=== PATIENT | female | born 1950 | race Caucasian/White ===

== ENCOUNTER → 2024-12-21 10:22 | Outpatient (CLI) | payer MEDICARE, SELFPAY | PROVIDERS: Visit Provider Chiropractor | DX: R82.90 Unspecified abnormal findings in urine (principal) | CPT/HCPCS: 87077; 87086; 87186 ==

== ENCOUNTER → 2024-12-30 14:26 | Outpatient (CLI) | payer MEDICARE, SELFPAY | PROVIDERS: Visit Provider Chiropractor | DX: R39.15 Urgency of urination (principal) | CPT/HCPCS: 87086 ==

== ENCOUNTER 2024-12-30 15:03 | Emergency (ER) | payer MEDICARE, SELFPAY ==
[2024-12-30 15:22] VITALS: BP 161/74; PULSE 74; RESP 16; TEMP 37.1; O2SAT 99; BMI 29.7
--- NOTE | 2024-12-30 16:35 | DI.CT.S_ITS ---
PROCEDURE: CT ABDOMEN PELVIS WO CON INDICATIONS: back/abd pain TECHNIQUE: CT of the abdomen and pelvis was obtained without intravenous contrast. Coronal and sagittal reformats were performed. For radiation dose reduction, the following was used: automated exposure control, adjustment of mA and/or kV according to patient size. COMPARISON: None. FINDINGS: Image quality: Diagnostic. Lower Chest: No significant findings. ABDOMEN: Liver: No contour-deforming mass. Gallbladder: Collapsed at the time of this study. Biliary ducts: No biliary dilation. Pancreas: No ductal dilation. Spleen: Size is within normal limits. Adrenal Glands: No adrenal nodules. Kidneys and Ureters: No hydronephrosis. No contour-deforming mass. Nonobstructing right-sided kidney stones are seen, measuring up to 5 mm and 300 Hounsfield units. Stomach and Bowel: Normal colonic caliber, without significant wall thickening. Scattered diverticulosis is seen, particularly distally. No active diverticulitis is seen. No dilated loops of small bowel are seen. A normal appendix is noted. Peritoneum: No abnormal intraperitoneal fluid. No free air. Ventral Wall: No significant hernia. Abdominal Nodes: No retroperitoneal or mesenteric adenopathy by size criteria. Vessels: Aorta and inferior vena cava are normal in size. PELVIS: Pelvic Organs: No adnexal masses are seen on either side. Bladder: Unremarkable. Pelvic Nodes: No enlarged lymph nodes. Miscellaneous: No inguinal hernias are seen. Bones: No aggressive osseous abnormality. There is at least moderate disc space narrowing seen at the L4-L5 level. Post erected disc osteophyte complex is seen at this level. At least moderate bilateral neural foraminal narrowing is seen. There is at least moderate disc space narrowing seen at L5-S1. At least moderate bilateral neural foraminal narrowing is also seen at this level. Milder degenerative changes are seen elsewhere. IMPRESSION: No hernando acute abnormality is seen. Focal lower lumbar spine degenerative changes are seen. Additional findings: Nonobstructing right-sided kidney stones Diverticulosis, without active diverticulitis Dictated by: Alexander Sparrow M.D. on 12/30/2024 at 16:06 Approved by: Alexander Sparrow M.D. on 12/30/2024 at 16:09
[2024-12-30 16:51] VITALS: BP 166/83; PULSE 60; O2SAT 100
[2024-12-30 17:00] VITALS: BP 149/65; PULSE 62; O2SAT 98
[2024-12-30] MEDS: LACTATED RINGERS 1,000 ML 1000 ML IV (17:05)
[2024-12-30] MEDS: ONDANSETRON 4 MG/2 ML INJ IV (17:05)
[2024-12-30] MEDS: KETOROLAC 30 MG/ML VIAL 15 MG IV (17:06)
[2024-12-30 17:11] LABS: Add Manual Diff / Slide Review NO; Hematocrit 43.5 % (36-46); Hemoglobin 14.8 g/dL (12.0-16.0); Lymphocytes Absolute Auto 1700 /uL (1100-4500); Mean Corpuscular HGB Conc 34.1 % (30-36); Mean Corpuscular Hemoglobin 29.1 PG (26-34); Mean Corpuscular Volume 85.6 fL (80-100); Platelet Count 265 X10^3/uL (150-400)
[2024-12-30 17:27] LABS: Alanine Aminotransferase 29 IU/L (<35); Albumin 4.5 g/dL (3.5-5.0); Albumin Globulin Ratio 1.6 (1.0-2.8); Alkaline Phosphatase 75 U/L (38-126); Blood Urea Nitrogen 21 mg/dL (7-17); Calcium 9.6 mg/dL (8.4-10.2); Carbon Dioxide 28 mmol/L (22-32); Chloride 103 mmol/L (98-107); Estimated Glomerular Filt Rate > 60 mL/min (>60); Globulin 2.8 g/dL (1.7-4.1); Glucose 114 mg/dL (70-99); HEMOLYSIS < 15 (0-50); Lipase 45 U/L (23-300); Potassium 4.1 mmol/L (3.4-5.1); Sodium 138 mmol/L (137-145); Total Protein 7.3 g/dL (6.3-8.2)
[2024-12-30 17:30] VITALS: BP 158/70; PULSE 55; RESP 22; O2SAT 97
--- NOTE | 2024-12-30 17:55 | ED_ITS ---
HPI - Female Genitourinary General Chief complaint: Urogenital-Female Stated complaint: suspect KD Stone Time Seen by Provider: 12/30/24 16:35 History of Present Illness HPI Narrative: 74 year old female recently treated for UTI with macrobid presents with blood in urine and lower abdominal pain along with multiple bouts on nonbloody diarrhea that started today and nausea. She is passing gas and moving her bowels denies any back pain fever chills body aches chest pain shortness breath cough sore throat. She was at the walk-in clinic and was referred to the ER for further evaluation. She is visiting from [place] at the moment. Other than what is stated 14 point review of system is negative. Related Data Home Medications ?Medication ?Instructions ?Recorded ?Confirmed acyclovir 800 mg tablet 800 mg PO DAILY PRN 12/21/24 12/30/24 conjugated estrogens 0.625 mg/gram 0.625 mg vaginal DA RICCARDO 12/21/24 12/21/24 vaginal cream Previous Rx's ?Medication ?Instructions ?Recorded ondansetron 4 mg disintegrating 4 mg PO Q8H PRN nausea and 12/30/24 tablet vomiting #30 tabs Allergies Allergy/AdvReac Type Severity Reaction Status Date / Time Sulfa (Sulfonamide AdvReac Nausea Verified 12/30/24 15:27 Antibiotics) Review of Systems Review of Systems ROS Unobtainable: All systems reviewed & are unremarkable except as noted in HPI and below Exam Narrative Exam Narrative: GENERAL: [74] year old patient appears stated age. Well-developed patient, in mild distress. HEAD: Atraumatic. Normocephalic. EYES: Pupils equal round and reactive. Extraocular motions intact. No scleral icterus. No injection or drainage. ENT: Nose without bleeding, purulent drainage. Throat without erythema, tonsillar hypertrophy or exudate. Airway patent. NECK: Trachea midline. Non tender CARDIOVASCULAR: Regular rate and rhythm without murmurs, gallops, or rubs. RESPIRATORY: Clear to auscultation. Breath sounds equal bilaterally. No wheezes, rales, or rhonchi. GASTROINTESTINAL: Abdomen soft, non-tender, nondistended. EXTREMITIES: No edema or joint tenderness. BACK: Nontender without deformity or crepitance. No flank tenderness. NEURO: AOx3. SKIN: No rash or erythema of visible areas Initial Vital Signs Initial Vital Signs: Vital Signs Temperature 98.8 F 12/30/24 15:22 Pulse Rate 74 12/30/24 15:22 Respiratory Rate 16 12/30/24 15:22 Blood Pressure 161/74 H 12/30/24 15:22 Pulse Oximetry 99 12/30/24 15:22 Oxygen Delivery Method Room Air 12/30/24 15:22 Course Orders Ordered: ED Orders 12/30/24 16:35 CT abdomen pelvis wo con Stat 12/30/24 16:50 Complete Blood Count AUTO DIFF Stat Comprehensive Metabolic Panel Stat Lipase Stat 12/30/24 17:02 Ictotest Urine Stat Urine Microscopic Stat Ondansetron HCl (Ondansetron 4 Mg/2 Ml Inj) 4 mg IV NOW PRN PRN Reason: Nausea And Vomiting Last Admin: 12/30/24 17:05 Dose: 4 mg Documented By: MATTHEW Ondansetron HCl (Ondansetron 4 Mg Odt) 4 mg PO NOW PRN PRN Reason: Nausea And Vomiting Discontinued Medications Lactated Ringer's (Lactated Ringers) 1,000 mls @ 1,000 mls/hr IV BOLUS ONE Stop: 12/30/24 17:34 Last Admin: 12/30/24 17:05 Dose: 1,000 mls/hr Documented By: MATTHEW Ketorolac Tromethamine (Ketorolac 30 Mg/Ml Vial) 15 mg IV NOW ONE Stop: 12/30/24 16:36 Last Admin: 12/30/24 17:06 Dose: 15 mg Documented By: MATTHEW Vital Signs Vital signs: Vital Signs - 8 hr 12/30/24 15:22 12/30/24 16:51 12/30/24 16:51 Temperature 98.8 F Pulse Rate 74 60 Respiratory Rate 16 Blood Pressure 161/74 H 166/83 H Pulse Oximetry 99 100 Oxygen Delivery Method Room Air 12/30/24 17:00 12/30/24 17:00 Temperature Pulse Rate 62 Respiratory Rate Blood Pressure 149/65 H Pulse Oximetry 98 Oxygen Delivery Method MDM - Female Genitourinary Lab Data 12/30/24 16:50 12/30/24 16:50 Labs: Lab Results 12/30/24 Range/Units 16:50 WBC 8.9 (4.5-11.0) X10^3/uL RBC 5.08 (4.0-5.2) X10^6/uL Hgb 14.8 (12.0-16.0) g/dL Hct 43.5 (36-46) % MCV 85.6 (80-100) fL MCH 29.1 (26-34) PG MCHC 34.1 (30-36) % RDW 13.8 (11.6-14.8) % Plt Count 265 (150-400) X10^3/uL Neut % (Auto) 73.7 (50-75) % Lymph % (Auto) 18.6 L (25-40) % Potter % (Auto) 6.9 (3-14) % Eos % (Auto) 0.4 L (2-4) % Baso % (Auto) 0.4 (0-2) % Neut # (Auto) 6600 (3615-6624) /uL Lymph # (Auto) 1700 (0287-1469) /uL Potter # (Auto) 600 (0-900) /uL Eos # (Auto) 0 (0-450) /uL Baso # (Auto) 0 (0-100) /uL Sodium 138 (137-145) mmol/L Potassium 4.1 (3.4-5.1) mmol/L Chloride 103 (98-107) mmol/L Carbon Dioxide 28 (22-32) mmol/L BUN 21 H (7-17) mg/dL Creatinine 0.77 (0.52-1.04) mg/dL Estimated GFR > 60 (>60) mL/min BUN/Creatinine Ratio 27.3 H (6-22) Glucose 114 H (70-99) mg/dL Calcium 9.6 (8.4-10.2) mg/dL Total Bilirubin 0.3 (0.2-1.3) mg/dL AST 33 (14-36) IU/L ALT 29 (<35) IU/L Alkaline Phosphatase 75 (38-126) U/L Total Protein 7.3 (6.3-8.2) g/dL Albumin 4.5 (3.5-5.0) g/dL Globulin 2.8 (1.7-4.1) g/dL Albumin/Globulin Ratio 1.6 (1.0-2.8) Lipase 45 (23-300) U/L Urine Dip Bedside Urine Glucose Negative Bedside Urine Bilirubin + 1 Bedside Urine Ketone +/- 5 Urine Specific [place] 1.030 Bedside Urine Occult Blood - Negative Bedside Urine pH 5.5 Bedside Urine Protein +/- 15 Bedside Urine Urobilinogen - Negative Bedside Urine Nitrite - Negative Bedside Urine Leukocytes +/- 15 Esterase MDM Narrative Medical decision making narrative: All lab work, vital signs, nurse triage note, medication list, previous ER visits, and all imaging studies reviewed. CT scan showed no hernando acute abnormality is seen. Focal lower lumbar spine degenerative changes are seen. WBC 8.9 hemoglobin 14.8 platelet 265 sodium 138 potassium 4.1 chloride 103 bicarb 28 BUN 21 creatinine 0.77 glucose 114, LFTs normal, lipase 45.UA neg nitrite, neg blood, +1 leuk, many calcium oxal, none bacteria. Pt given fluids,and toradol here for which she feels much better on re-examination. Discharge Plan Departure Patient Disposition: Home Clinical Impression: Nausea, Diarrhea Instructions: DI for Diarrhea and Traveler's Diarrhea -- Adult Activity Restrictions/Additional Instructions: Return with new or worsening symptoms. Keep hydrated. Clear liquid diet advance as tolerated. Follow pcp 1 week if no improvement in symptoms. Prescriptions: New ondansetron 4 mg tablet,disintegrating 4 mg PO Q8H PRN (Reason: nausea and vomiting) Qty: 30 0RF No Action acyclovir 800 mg tablet 800 mg PO DAILY PRN conjugated estrogens 0.625 mg/gram cream 0.625 mg vaginal DAILY Rx Instructions: off 5 days; repeat cycle Referrals: Miscellaneous,Doctor, MD [Primary Care Provider, Medical] Stand Alone Forms: Patient Portal/API
[2024-12-30 17:56] LABS: Ictotest Urine Negative (Negative)
[2024-12-30 18:00] VITALS: BP 152/69; PULSE 58; RESP 20; O2SAT 98
[2024-12-30 18:02] LABS: Culture Indicated Urine Cult Not Indicated
== END 2024-12-30 18:24 | disposition home or self-care (01) ==
PROVIDERS: Emergency Provider Family Medicine
DX: R11.0 Nausea (principal); R19.7 Diarrhea, unspecified; R10.30 Lower abdominal pain, unspecified; R39.15 Urgency of urination
CPT/HCPCS: 36415; 74176; 80053; 81003; 81015; 83690; 85025; 87086; 96361; 96374; 96375; 99284; J1885; J2405; J7120

== ENCOUNTER 2025-01-16 14:17 | Emergency (ER) | payer MEDICARE, SELFPAY ==
[2025-01-16] VITALS (16 sets, daily range): BP systolic 146–189; BP diastolic 65–90; PULSE 62–79; RESP 16–21; TEMP 36.4; O2SAT 96–99; BMI 29.7
--- NOTE | 2025-01-16 14:54 | EKG_ITS ---
[facility] [id number] [place] [address] Test Date: 2025-01-16 Pat Name: Trina Aguilar Department: [facility] Room: Gender: Female [employer] Manager: MARCO : 1950 Requested By: Order Number: [id number] Reading MD: Rich Whitman MD Measurements Intervals [place] Rate: 68 P: 41 IN: 154 QRS: -21 QRSD: 90 T: -4 QT: 402 QTc: 427 Interpretive Statements Normal sinus rhythm Minimal voltage criteria for LVH, may be normal variant ( R in aVL ) Electronically Signed On 01-23-2025 9:02:21 PST by Rich Whitman MD
[2025-01-16 15:01] LABS: Add Manual Diff / Slide Review NO; Hematocrit 41.5 % (36-46); Hemoglobin 14.0 g/dL (12.0-16.0); Lymphocytes Absolute Auto 1700 /uL (1100-4500); Mean Corpuscular HGB Conc 33.7 % (30-36); Mean Corpuscular Hemoglobin 29.0 PG (26-34); Mean Corpuscular Volume 86.0 fL (80-100); Platelet Count 256 X10^3/uL (150-400)
[2025-01-16 15:03] LABS: Alanine Aminotransferase 26 IU/L (<35); Albumin 4.4 g/dL (3.5-5.0); Albumin Globulin Ratio 1.6 (1.0-2.8); Alkaline Phosphatase 61 U/L (38-126); Blood Urea Nitrogen 19 mg/dL (7-17); Calcium 9.1 mg/dL (8.4-10.2); Carbon Dioxide 27 mmol/L (22-32); Chloride 102 mmol/L (98-107); Estimated Glomerular Filt Rate > 60 mL/min (>60); Globulin 2.8 g/dL (1.7-4.1); Glucose 172 mg/dL (70-99); HEMOLYSIS < 15 (0-50); Lipase 40 U/L (23-300); Potassium 3.6 mmol/L (3.4-5.1); Sodium 138 mmol/L (137-145); Total Protein 7.2 g/dL (6.3-8.2)
--- NOTE | 2025-01-16 15:48 | ED_ITS ---
HPI - Abdominal Pain General Chief Complaint: Abdominal Pain Stated Complaint: Uterus issue, spotting brown, burning pain Time Seen by Provider: 01/16/25 15:28 Source: patient Mode of arrival: Ambulatory History of Present Illness HPI narrative: Patient is healthy 74-year-old female presenting today with dysuria. She has previously been seen for UTI. She was given estrogen cream she took antibiotics but still having painful urination. She has had a CT during her last ED visit which did not show any significant abnormality. She denies any back pain no vaginal bleeding. Related Data Home Medications ?Medication ?Instructions ?Recorded ?Confirmed acyclovir 800 mg tablet 800 mg PO DAILY PRN 12/21/24 12/30/24 conjugated estrogens 0.625 mg/gram 0.625 mg vaginal DA RICCARDO 12/21/24 12/21/24 vaginal cream Previous Rx's ?Medication ?Instructions ?Recorded ondansetron 4 mg disintegrating 4 mg PO Q8H PRN nausea and 12/30/24 tablet vomiting #30 tabs fluconazole 200 mg tablet 200 mg PO DAILY PRN vaginal 01/16/25 irritation #2 tabs Allergies Allergy/AdvReac Type Severity Reaction Status Date / Time Sulfa (Sulfonamide AdvReac Nausea Verified 12/30/24 15:27 Antibiotics) Patient History Social History Smoking Status: Never smoker Smoking Status: Never smoker Exam Initial Vital Signs Initial Vital Signs: Vital Signs Pulse Rate 79 01/16/25 14:23 Pulse Oximetry 97 01/16/25 14:23 GENERAL: Alert very well-appearing 74-year-old female and in no acute distress. HEENT: Head atraumatic,EOMI, pupils reactive, face symmetric, moist mucous membranes CARDIOVASCULAR: Regular rate and rhythm without murmurs, rubs or gallops. RESPIRATORY: Breath sounds equal bilaterally, no wheezes rales or rhonchi. ABDOMEN: Soft, nontender. Normoactive bowel sounds all 4 quadrants. No guarding or rebound. PELVIC: External genitalia is normal, no vaginal bleeding, thick white discharge, no odor, cervical os is closed, no adnexal tenderness EXTREMITIES: Normal range of motion, no clubbing or edema. Neurovascularly intact NEUROLOGICAL: Alert and oriented x4.Normal gait and speech. Cranial nerves II through XII grossly intact. SKIN: Warm, dry, no laceration, no petechiae, no rashes or lesions. Course Orders Ordered: ED Orders 01/16/25 14:33 EKG-12 Lead Stat 01/16/25 14:45 Complete Blood Count AUTO DIFF Stat Comprehensive Metabolic Panel Stat Lipase Stat 01/16/25 17:40 Chlamydia/Gonoc/Myco Genital Stat Genital Culture Stat Wet Prep Tric BV Ruthann Stat Discontinued Medications Ondansetron HCl (Ondansetron 4 Mg/2 Ml Inj) 4 mg IV NOW PRN PRN Reason: Nausea And Vomiting Ondansetron HCl (Ondansetron 4 Mg Odt) 4 mg PO NOW PRN PRN Reason: Nausea And Vomiting Vital Signs Vital signs: Vital Signs - 8 hr 01/16/25 14:23 01/16/25 14:24 01/16/25 14:24 Temperature Pulse Rate 79 79 Respiratory Rate Blood Pressure 168/79 H Pulse Oximetry 97 98 Oxygen Delivery Method 01/16/25 14:27 01/16/25 14:50 01/16/25 15:00 Temperature 97.5 F L Pulse Rate 79 72 74 Respiratory Rate 16 18 18 Blood Pressure 168/79 H Pulse Oximetry 98 Oxygen Delivery Method Room Air 01/16/25 15:05 01/16/25 15:05 01/16/25 15:30 Temperature Pulse Rate 67 65 Respiratory Rate 18 20 Blood Pressure 146/66 H Pulse Oximetry 96 96 Oxygen Delivery Method 01/16/25 15:31 01/16/25 15:31 01/16/25 16:00 Temperature Pulse Rate 67 65 Respiratory Rate 18 Blood Pressure 157/65 H Pulse Oximetry 96 98 Oxygen Delivery Method 01/16/25 16:01 01/16/25 16:01 01/16/25 16:30 Temperature Pulse Rate 64 68 Respiratory Rate 21 Blood Pressure 189/81 H Pulse Oximetry 97 97 Oxygen Delivery Method Room Air 01/16/25 16:31 01/16/25 16:31 01/16/25 16:53 Temperature Pulse Rate 65 68 Respiratory Rate 18 Blood Pressure 164/81 H Pulse Oximetry 99 96 Oxygen Delivery Method Room Air 01/16/25 17:00 01/16/25 17:00 01/16/25 17:30 Temperature Pulse Rate 66 62 Respiratory Rate 20 Blood Pressure Pulse Oximetry 98 97 Oxygen Delivery Method 01/16/25 17:55 Temperature Pulse Rate Respiratory Rate Blood Pressure 189/90 H Pulse Oximetry Oxygen Delivery Method MDM - Abdominal Pain Lab Data 01/16/25 14:45 01/16/25 14:45 Labs: Lab Results 01/16/25 Range/Units 14:45 WBC 6.3 (4.5-11.0) X10^3/uL RBC 4.83 (4.0-5.2) X10^6/uL Hgb 14.0 (12.0-16.0) g/dL Hct 41.5 (36-46) % MCV 86.0 (80-100) fL MCH 29.0 (26-34) PG MCHC 33.7 (30-36) % RDW 13.8 (11.6-14.8) % Plt Count 256 (150-400) X10^3/uL Neut % (Auto) 64.5 (50-75) % Lymph % (Auto) 26.8 (25-40) % Kane % (Auto) 6.9 (3-14) % Eos % (Auto) 1.3 L (2-4) % Baso % (Auto) 0.5 (0-2) % Neut # (Auto) 4100 (4298-5832) /uL Lymph # (Auto) 1700 (7147-2550) /uL Kane # (Auto) 400 (0-900) /uL Eos # (Auto) 100 (0-450) /uL Baso # (Auto) 0 (0-100) /uL Sodium 138 (137-145) mmol/L Potassium 3.6 (3.4-5.1) mmol/L Chloride 102 (98-107) mmol/L Carbon Dioxide 27 (22-32) mmol/L BUN 19 H (7-17) mg/dL Creatinine 0.76 (0.52-1.04) mg/dL Estimated GFR > 60 (>60) mL/min BUN/Creatinine Ratio 25.0 H (6-22) Glucose 172 H (70-99) mg/dL Calcium 9.1 (8.4-10.2) mg/dL Total Bilirubin 0.5 (0.2-1.3) mg/dL AST 33 (14-36) IU/L ALT 26 (<35) IU/L Alkaline Phosphatase 61 (38-126) U/L Total Protein 7.2 (6.3-8.2) g/dL Albumin 4.4 (3.5-5.0) g/dL Globulin 2.8 (1.7-4.1) g/dL Albumin/Globulin Ratio 1.6 (1.0-2.8) Lipase 40 (23-300) U/L Point of care testing: Urine Dip Bedside Urine Glucose Negative Bedside Urine Bilirubin + 1 Bedside Urine Ketone - Negative Urine Specific [place] 1.030 Bedside Urine Occult Blood - Negative Bedside Urine pH 5.5 Bedside Urine Protein +/- 15 Bedside Urine Urobilinogen - Negative Bedside Urine Nitrite - Negative Bedside Urine Leukocytes +/- 15 Esterase MDM Narrative Medical decision making narrative: Patient healthy 74-year-old female presenting today with ongoing dysuria. She has been treated for UTI she has estrogen cream she continues to have pain. She had a CT and blood work 12/30/2024, which reports he was recently treated for UTI with Macrobid and still having symptoms Today she continues to have similar symptoms Blood work has been reviewed CBC no abnormality CMP no electrolyte abnormality glucose 172 Bilirubin liver enzymes within normal limit Urinalysis negative for UTI Pelvic exam does show some thickened discharge consistent with yeast candidiasis. Wet mount cultures have been sent At this time we will go ahead and treat her for a yeast infection other cultures pending. No need for any further workup. Discharge Plan Departure Patient Disposition: Home Clinical Impression: Vagina, candidiasis Instructions: DI for Vaginal Yeast Infection Activity Restrictions/Additional Instructions: *You have been diagnosed with yeast infection *What to do: This time we will take fluconazole 1 tablet tomorrow weight 1 week if you are still having symptoms then repeat the dose *Continue to take medications as directed Diflucan 200 mg x 1 *Follow up with your primary care provider in 2-3 days or call [phone] *Return to ER if you should have increasing pain frequency burning or any new, worsening or concerning symptoms Prescriptions: New fluconazole 200 mg tablet 200 mg PO DAILY PRN (Reason: vaginal irritation) Qty: 2 0RF Rx Instructions: Take 1 tablet if still having symptoms 7 days later may take a 2nd tablet No Action acyclovir 800 mg tablet 800 mg PO DAILY PRN conjugated estrogens 0.625 mg/gram cream 0.625 mg vaginal DAILY Rx Instructions: off 5 days; repeat cycle ondansetron 4 mg tablet,disintegrating 4 mg PO Q8H PRN (Reason: nausea and vomiting) Qty: 30 0RF Stand Alone Forms: Patient Portal/API
== END 2025-01-16 17:59 | disposition home or self-care (01) ==
PROVIDERS: Emergency Provider Emergency Medicine
DX: B37.31 Acute candidiasis of vulva and vagina (principal)
CPT/HCPCS: 36415; 80053; 81003; 83690; 85025; 87070; 87205; 87210; 87491; 87563; 87591; 93005; 99283; 99284

== ENCOUNTER → 2025-01-28 09:13 | Outpatient (CLI) | payer MEDICARE, SELFPAY | PROVIDERS: Visit Provider Nurse Practitioner Family | DX: R30.0 Dysuria (principal) | CPT/HCPCS: 87086 ==

== ENCOUNTER → 2025-01-31 15:17 | Outpatient (CLI) | payer MEDICARE, SELFPAY | PROVIDERS: Referring Provider Chiropractor; Visit Provider Chiropractor | DX: R30.0 Dysuria (principal) | CPT/HCPCS: 87086 ==